=== PATIENT | male | born 1955 | race Caucasian/White ===

== ENCOUNTER 2020-04-04 06:33 | Day surgery (SDC) | payer OTHER ==
[~2020-04-04] VITALS: Ht 175.3 cm; Wt 95.5 kg
[~2020-04-04 06:33] MED LIST: SODIUM CHLORIDE 0.9% 1,000 ML IV ONE; SODIUM CHLORIDE 0.9% 1,000 ML ONE
[2020-04-04] MEDS ORDERED: MIDAZOLAM HCL 2 MG/2 ML VIAL ONE (07:41)
[2020-04-04] MEDS ORDERED: FentaNYL CITRATE-PF 100 MCG/2 ML VIAL ONE (07:42)
[2020-04-04] MEDS ORDERED: LISI-662 PO (07:51)
[2020-04-04] MEDS ORDERED: ASPI-728 PO (07:51)
[2020-04-04] MEDS ORDERED: BECL10.62 IH (07:52)
[2020-04-04] MEDS ORDERED: FLUT16H NASAL (07:52)
[2020-04-04] MEDS ORDERED: TERA1CAP7 PO (07:52)
[2020-04-04] MEDS ORDERED: MethylPREDNISolone SOD SUCC 125 MG/2 ML VIAL IVP ONE (09:00)
[2020-04-04] MEDS ORDERED: MethylPREDNISolone SOD SUCC 125 MG/2 ML VIAL ONE (09:06)
[2020-04-04] MEDS ORDERED: ALBUTEROL SULFATE 2.5 MG/0.5 ML NEB SOLUTION NEB ONE (17:18)
[2020-04-04] MEDS ORDERED: LIDOCAINE 4% 50 ML SOLUTION ONE (17:18)
[2020-04-04] MEDS ORDERED: LIDOCAINE 2% 30 ML JELLY ONE (17:18)
[2020-04-04] MEDS ORDERED: BENZOCAINE 20% 50 MCG/SPRAY 57 GM ONE (17:18)
[2020-04-04] MEDS ORDERED: OXYGEN THERAPY IH SCH (20:00)
== END 2020-04-04 10:45 | disposition home or self-care (01) ==
LOC: SURGERY 06:33
PROVIDERS: ATTEND Internal Medicine Critical Care Medicine
DX: J38.4 Edema of larynx (principal); B37.0 Candidal stomatitis; G47.33 Obstructive sleep apnea (adult) (pediatric); J39.8 Other specified diseases of upper respiratory tract; Z72.89 Other problems related to lifestyle
CPT/HCPCS: 31623; 31624; 71045; 87015; 87070; 87101; 87205; 87206; 87220; 87426; 88108; 88312; J2250; J2930; J3010; J7030; J7613; Z7610